=== PATIENT | female | born 1990 | race Asian ===

== ENCOUNTER 2016-03-25 12:26 | Inpatient (IN) | payer OTHER, MEDICAID ==
[2016-03-25 12:50] VITALS: BMI 32.3
[2016-03-25] MEDS ORDERED: LACTATED RINGERS 1,000 ML IV PRN (15:30)
[2016-03-25] MEDS ORDERED: OXYTOCIN IN LR 334 ML IV ONE (15:30)
[2016-03-25] MEDS ORDERED: IV START KIT ONE (15:32)
[2016-03-25] MEDS ORDERED: PUMP TUBING ONE (15:33)
[2016-03-25] MEDS ORDERED: OXYTOCIN 10 UNITS/ML VIAL ONE (15:33)
[2016-03-25] MEDS ORDERED: MINERAL OIL 25 ML BOT ONE (15:33)
[2016-03-25] MEDS ORDERED: LIDOCAINE Viscous 2% 15 ML UDCUP ONE (15:33)
[2016-03-25] MEDS ORDERED: LIDOCAINE 1% (PRES FREE) 30 ML VIAL ONE (15:33)
[2016-03-25 16:47] LABS: HEMATOCRIT 40.9 % (37.0-47.0); HEMOGLOBIN 13.9 gm/l (12.0-16.0); MEAN CELL VOLUME 90.5 fl (81.0-99.0); MEAN CORPUSCULAR HEMOGLOBIN 30.8 pg (27.0-31.0); RED CELL DISTRIBUTION WIDTH 13.8 % (11.5-14.5)
--- NOTE | 2016-03-25 18:43 | PCMAN ---
OB Admission Note - History : 3 Term: 2 : 0 Abortions (S&E): 0 Livin Gestational Age (weeks): 40 Days (#/7): 1 Admit Cervical Dilation:: 5 Admit Cervical Effacement (%):: 90 Admit Station:: -3 Admit Presentaton:: vertex Membrane Status: Bulging Labor Onset (Date): 03/25/16 Labor Onset (Time): 14:18 Contractions: Yes Contraction Frequency:: 2-4min Heart Rate:: 135 (mod noah/+accels/no decels) Status:: Cat 1 EFW:: 8lb Summary of Course:: Uncomplicated course. LMP: 05/13/15, DUANE 02/17/16 u/s 08/17/15, 8w5d, DUANE 03/24/16 u/s 10/27/15, 18w2d, DUANE 03/27/16 PMHx: none PSxH: none SH: denies x 3 - Labs Blood Type: A (+) positive Rubella Status: Immune GBS Status: Negative Abnormal Labs: None - Review of Systems +ctx, +FM. no LOF, VB. No NEW, blurry vision, epigastric pain, increased swelling - Physical Exam General: Afebrile Psych/Mental Status: Mood/Affect Appropriate, Judgment/Insight Intact Neurological: Grossly Intact, Alert HEENT: Atraumatic, EOMI Lungs: Clear to Auscultation Bilaterally, Normal Air Movement Cardiovascular: Regular Rate and Rhythm, Normal S1, Normal S2 - Problems (1) Active labor at term Status: Acute Code: [id number] Assessment/Plan: 25 yo @ 40w1d, redated by 8 week scan. 1. Labor: s/p AROM, continue expectant management. Anticipate 2. FWB Cat 1 3. Pain: declines pain meds 4. GBS negative 5. BCM: mirena IUD 6. Infant nutrition: formula feeding
--- NOTE | 2016-03-25 20:30 | PCMDEL ---
Delivery Note - Labor 1st stage (hr/min):: 5h40m 2nd stage (hr/min):: 3m 3rd stage (hr/min):: 4m Total (hr/min):: 5h27m Pushed (hr/min):: 3m - Delivery Delivery (Date): 03/25/16 Delivery (Time): 20:01 Gender: Female Presentation: Cephalic Position: OA Umbilical Cord: 3 Vessel Delayed Cord Clamping:: 2-3 min 1 Minute Total: 9 5 Minute Total: 9 Placenta:: intact EBL:: 500cc due to uterine atony Perineum:: intact Suture:: none Anesthesia/Meds:: none Length ROM:: 1h45m Comments:: Pt admitted for active labor. Pt progressed to 8cm, with significant urge to push. station at +3. Anterior lip was easily reduced and pt delivered viable female infant in OA position. Vigorous placed on maternal chest, cord clamping delayed by 2m and cut by FOB. Placenta delivered intact. Uterine atony noted with a gush of blood, red tommie catheter used to empty bladder with hemostasis. EBL 500cc 2/2 uterine atony.
[2016-03-25] MEDS ORDERED: LANOLIN 50 APPLIC/7G TUBE TP PRN (20:31)
[2016-03-25] MEDS ORDERED: IBUPROFEN 800 MG TABLET ONE (20:31)
[2016-03-25] MEDS ORDERED: DOCUSATE SODIUM 100 MG CAPSULE PO PRN (20:31)
[2016-03-25] MEDS ORDERED: BENZOCAINE/MENTHOL 60 APPLIC/BOT TP PRN (20:31)
[2016-03-25] MEDS ORDERED: HYDROCODONE/ACETAMINOPHEN 5/325MG TABLET PO PRN (20:31)
[2016-03-25] MEDS: IBUPROFEN 800 MG TABLET PO PRN (20:37)
[2016-03-25] MEDS: OXYCODONE HCL 5 MG TABLET PO PRN (20:55)
[2016-03-26 07:04] LABS: HEMATOCRIT 33.4 % (37.0-47.0); HEMOGLOBIN 11.2 gm/l (12.0-16.0)
[2016-03-26] MEDS: IBUPROFEN 800 MG TABLET PO PRN ×3 (08:32→22:34)
[2016-03-26] MEDS: OXYCODONE HCL 5 MG TABLET PO PRN (08:32)
--- NOTE | 2016-03-26 08:50 | PDOC44 ---
- Subjective Day: 1 Reports Pain Tolerable, Reports Tolerating Regular Diet (Some dizzyness with ambulation), Denies , Denies Nausea - Objective Temp Pulse Resp BP Pulse Ox 98.2 F 93 16 87/51 03/26/16 08:21 03/26/16 08:21 03/26/16 08:21 03/26/16 08:21 Lab Results 03/26/16 03/25/16 06:30 16:10 WBC 11.1 H RBC 4.52 Hgb 11.2 L D 13.9 Hct 33.4 L 40.9 Plt Count 165 Current Medications Generic Name Dose Route Start Last Admin Trade Name Freq PRN Reason Stop Dose Admin Acetaminophen/Hydrocodone Bitart 1 - 2 tab 03/25/16 20:31 [place] 5/325 PO Q4H PRN Pain (Moderate) Benzocaine/Menthol 1 applic 03/25/16 20:31 Dermoplast TP PRN PRN Patient Comfort Docusate Sodium 100 mg 03/25/16 20:31 03/26/16 08:32 Colace PO 100 mg DAILY PRN Administration Comfort Emollient Ointment 1 applic 03/25/16 20:31 Qeq-T-Gaonsa TP PRN PRN sore nipples Ibuprofen 800 mg 03/25/16 20:31 03/26/16 08:32 Motrin PO 800 mg Q8H PRN Administration Pain (Mild) Oxycodone HCl 5 - 10 mg 03/25/16 20:31 03/26/16 08:32 Roxicodone PO 5 mg Q3H PRN Administration Pain (Severe) Sodium Chloride 10 ml 03/25/16 20:31 Normal Saline 10ml Flush IV PRN PRN IV Flush - Physical Exam General: Afebrile Psych/Mental Status: Mood/Affect Appropriate, Bonding Well Fundus: Firm, Midline, At Umbilicus Skin: Warm, Dry, No Rash - Problems:Assessment/Plan (1) (normal spontaneous vaginal delivery) Status: Acute Assessment/Plan: Doing well. Mild dizziness a/w pp status. No severe anemia. Follow closely. Routine pp care. Disposition: Stable, Anticipate DC Home Tomorrow
[2016-03-26] MEDS ORDERED: METHYLERGONOVINE MALEATE 0.2 MG/ML 1ML AMP ONE (09:00)
[2016-03-27] MEDS: IBUPROFEN 800 MG TABLET PO PRN ×2 (04:37→16:38)
--- NOTE | 2016-03-27 18:17 | PDOC39B ---
Hospital Course: ADMIT DATE: 03/25/16 DISCHARGE DATE: 03/27/16 ADMISSION DIAGNOSES: IUP at term PROCEDURES: HISTORY OF PRESENT ILLNESS: 25 year old G3 T2 L2 at 40 weeks 1 days presenting with [facility] HOSPITAL COURSE: The patient was admitted in active labor. AROM. Progressed to complete and had uncomplicated . By day of discharge the patient is ambulating, eating, voiding, and passing flatus without difficulty. Pain is controlled and lochia is appropriate. She is bottle feeding. - Physical Exam Vital Signs: Temp Pulse Resp BP Pulse Ox 97.9 F 87 16 98/61 03/27/16 14:48 03/27/16 14:48 03/27/16 14:48 03/27/16 14:48 General: Afebrile, No Acute Distress Psych/Mental Status: Mood/Affect Appropriate, Judgment/Insight Intact, Bonding Well Neurological: Grossly Intact, Alert, Normal Gait, Normal Speech HEENT: Atraumatic, Mucous membr. moist/pink Lungs: Clear to Auscultation Bilaterally Cardiovascular: Regular Rate and Rhythm Breast: Soft Fundus: Firm, Midline, Below Umbilicus Skin: Normal Color, Warm, Dry - Discharge Diagnosis (1) (normal spontaneous vaginal delivery) Status: Acute Assessment/Plan: Doing well POD#2. pp precautions given pelvic rest x 6 wks Cont PNV dc home. - Discharge Plan Condition: Good Disposition: Home Instruction Forms: Vaginal Discharge Instructions Prescriptions: Benzocaine/Menthol [DERMOPLAST SPRAY (SHF)] 1 applic TP PRN PRN #1 bot PRN Reason: Patient Comfort Ibuprofen [IBUPROFEN 800 MG TABLET (SHF)] 800 mg PO Q8H PRN #1 tablet PRN Reason: Pain (Mild) Lanolin [LANOLIN 7 G TUBE (SHF)] 1 applic TP PRN PRN #1 tube PRN Reason: Sore Nipples Follow-Up: Mary Yeboah MD [Primary Care Provider] - 03/29/16 (clinic to call re: time, at clinic pt can sched 6 wk PP exam )
[2016-03-27 20:22] VITALS: BP 113/75
== END 2016-03-27 21:00 | disposition home or self-care (01) | DRG 774 ==
LOC: FBCOUT 12:26 → FBC 12:30 → FBCOUT 15:15 → FBC 15:25
PROVIDERS: ADMIT Family Medicine; ATTEND Family Medicine
PROC: 10E0XZZ Delivery of Products of Conception, External Approach (ICD-10-PCS; principal; 2016-03-25)
PROC: 10907ZC Drainage of Amniotic Fluid, Therapeutic from Products of Conception, Via Natural or Artificial Opening (ICD-10-PCS; 2016-03-25)
DX: O62.2 Other uterine inertia (principal); O90.89 Other complications of the puerperium, not elsewhere classified; R42 Dizziness and giddiness; Z37.0 Single live birth; Z3A.40 40 weeks gestation of pregnancy